=== PATIENT | male | born 1945 | race Caucasian/White ===

== ENCOUNTER 2022-01-25 16:56 | Emergency (ER) | payer OTHER ==
[~2022-01-25] VITALS: Ht 162.6 cm; Wt 83.9 kg
[2022-01-25] MEDS ORDERED: ADULT LOW DOSE81 M1 PO (17:53)
[2022-01-25] MEDS ORDERED: TOPROL XL50 M1 PO (17:53)
[2022-01-25] MEDS ORDERED: VASOTEC20 M1 PO (17:53)
[2022-01-25] MEDS ORDERED: PLAVIX75 MG PO (17:53)
[2022-01-25] MEDS ORDERED: GLUMETZA1000 MG PO (17:54)
[2022-01-25] MEDS ORDERED: GLIPIZIDE10 MG PO (17:54)
== END 2022-01-25 20:34 | disposition home or self-care (01) ==
LOC: ER 16:56
DX: K52.89 Other specified noninfective gastroenteritis and colitis (principal)